=== PATIENT | female | born 1990 | race Caucasian/White ===

== ENCOUNTER → 2016-04-22 21:11 | Observation (INO) ==
[2016-04-22 19:20] LABS: Bilirubin,Urine Negative (Negative); Blood,Urine Negative (Negative); Clarity,Urine Cloudy (Clear); Color,Urine Yellow (Yellow); Glucose,Urine (UA) Normal (Normal); Ketones,Urine Negative (Negative); Leukocyte Esterase,Urine Large (Negative); Nitrite,Urine Negative (Negative); PH,Urine 6.5 pH Units (5.0-8.0); Protein,Urine Negative (Neg-Trace); Specific Gravity,Urine 1.015 (1.010-1.025); Urobilinogen,Urine Normal (Normal)
[2016-04-22 19:23] LABS: Bacteria,Urine Moderate per hpf (None-Few); Hyaline Casts,Urine None Seen per lpf (None-Few); RBC,Urine 0-3 per hpf (0-3); Squamous Epithelial Cell,Urine Many per lpf (None-Few); WBC,Urine 15-30 per hpf (0-3)
--- NOTE | 2016-04-22 21:05 | OB/GYN Progress Note ---
Date of Encounter: 04/22/16 Time of Encounter: 21:02 - Assessment and Plan (1) Abdominal pain affecting Current Visit: Yes Status: Acute Pt. reassured pain is from the baby, due to its position. Precautions given. To f/u as scheduled or prn. Subjective - Subjective Interval history: Pt. presents to L&D with c/o sharp pain in upper part of abdomen. Occured at work, worse with movement. Denies any urinary symptoms, vaginal bleeding, leaking of fluid. States pain located in a specific area about the size of a quarter. Objective - Vital Signs Vital Signs: Intake and Output 04/22/16 04/22/16 04/22/16 07:59 15:59 23:59 Other: Weight 66.905 kg Patient Weight 04/22/16 23:59 Weight 66.905 kg - Exam FHR: auscultation normal Comments: Location of pain noted in upper part of uterus. part palpated in the area. - Labs Labs: Abnormal lab results Urine Clarity Cloudy (Clear) A 04/22/16 19:10 Ur Leukocyte Esterase Large (Negative) H 04/22/16 19:10 Urine Microscopic WBC 15-30 per hpf (0-3) H 04/22/16 19:10 Ur Squamous Epith Cells Many per lpf (None-Few) H 04/22/16 19:10 Urine Bacteria Moderate per hpf (None-Few) H 04/22/16 19:10 Ur Culture Indicated? YES (NO) A 04/22/16 19:10
== END | disposition home or self-care (01) ==
LOC: 1NENULAB

== ENCOUNTER → 2016-05-15 14:00 | Observation (INO) ==
[2016-05-15 13:23] LABS: Bilirubin,Urine Negative (Negative); Blood,Urine Moderate (Negative); Clarity,Urine Cloudy (Clear); Color,Urine Yellow (Yellow); Glucose,Urine (UA) Normal (Normal); Ketones,Urine Negative (Negative); Leukocyte Esterase,Urine Moderate (Negative); Nitrite,Urine Negative (Negative); PH,Urine 7.5 pH Units (5.0-8.0); Protein,Urine Negative (Neg-Trace); Specific Gravity,Urine 1.009 (1.010-1.025); Urobilinogen,Urine Normal (Normal)
[2016-05-15 13:26] LABS: Bacteria,Urine Few per hpf (None-Few); Hyaline Casts,Urine None Seen per lpf (None-Few); Squamous Epithelial Cell,Urine Many per lpf (None-Few)
[2016-05-15 13:31] VITALS: BP 106/67
--- NOTE | 2016-05-15 13:44 | OB/GYN Progress Note ---
Date of Encounter: 05/15/16 Time of Encounter: 13:42 Subjective - Subjective Principal diagnosis: 32 weeks gestation with suprapelvic pain Interval history: Ms Gresham is a 25yo female, at 32 weeks Objective - Vital Signs Vital Signs: Vital Signs Temp Pulse Resp BP 05/15/16 13:23 98.2 F 90 14 106/67 Intake and Output 05/14/16 05/15/16 05/15/16 23:59 07:59 15:59 Other: Weight 68.9 kg Patient Weight 05/15/16 23:59 Weight 68.9 kg - Labs Labs: Abnormal lab results Urine Clarity Cloudy (Clear) A 05/15/16 13:13 Ur Specific [place] 1.009 (1.010-1.025) L 05/15/16 13:13 Urine Blood Moderate (Negative) H 05/15/16 13:13 Ur Leukocyte Esterase Moderate (Negative) H 05/15/16 13:13 Urine Microscopic RBC 5-15 per hpf (0-3) H 05/15/16 13:13 Urine Microscopic WBC 5-15 per hpf (0-3) H 05/15/16 13:13 Ur Squamous Epith Cells Many per lpf (None-Few) H 05/15/16 13:13 Ur Culture Indicated? YES (NO) A 05/15/16 13:13
--- NOTE | 2016-05-15 13:49 | Discharge Summary ---
Date of Encounter: 05/15/16 Time of Encounter: 13:49 - Discharge Diagnosis (1) 32 weeks gestation of Priority: Primary Status: Acute Comments: Ms Gresham is a at 32 weeks + 1 day who presents with suprapubic pain and clear, vaginal discharge. UA showed moderate blood, moderate leuk esterase , RBC and WBC and many squamous epithelial cells suggestive of a urinary tract infection. Patient will be discharged with 7 days of macrobid 100mg to follow up with her primary OB outpatient. (2) Suprapubic pain Priority: Secondary Status: Acute (3) Vaginal discharge Priority: Secondary Status: Acute - Discharge Medications Prescriptions: Nitrofurantoin Monohyd/M-Cryst [Macrobid 100 mg Capsule] 100 mg PO BID #14 capsule Home Medications: Nitrofurantoin Monohyd/M-Cryst [Macrobid 100 mg Capsule] 100 mg PO BID #14 capsule 05/15/16 [Rx] One Daily Tablet 1 / PO DAILY 05/15/16 [History] Allergies/Adverse Reactions: Allergies No Known Allergies Allergy (Verified 07/07/15 00:40) Data Procedures and tests throughout hospitalization: Laboratory Tests 05/15/16 13:13 Urine Color Yellow Urine Clarity Cloudy A Urine pH 7.5 Ur Specific [place] 1.009 L Urine Protein Negative Urine Glucose (UA) Normal Urine Ketones Negative Urine Blood Moderate H Urine Nitrite Negative Urine Bilirubin Negative Urine Urobilinogen Normal Ur Leukocyte Esterase Moderate H Urine Microscopic RBC 5-15 H Urine Microscopic WBC 5-15 H Ur Squamous Epith Cells Many H Urine Bacteria Few Hyaline Casts None Seen Ur Culture Indicated? YES A Labs on day of discharge: Labs from last 24 hours 05/15/16 13:13 Urine Color Yellow Urine Clarity Cloudy A Urine pH 7.5 Ur Specific [place] 1.009 L Urine Protein Negative Urine Glucose (UA) Normal Urine Ketones Negative Urine Blood Moderate H Urine Nitrite Negative Urine Bilirubin Negative Urine Urobilinogen Normal Ur Leukocyte Esterase Moderate H Urine Microscopic RBC 5-15 H Urine Microscopic WBC 5-15 H Ur Squamous Epith Cells Many H Urine Bacteria Few Hyaline Casts None Seen Ur Culture Indicated? YES A Date of admission: 05/15/16 12:45 Primary care physician: PCP NO Discharging clinician: Fermín Long Anticipated date of discharge: 05/15/16 - Patient Status Disposition: Home, Self-Care Condition: Good Functional capacity at discharge: independent ambulation Overall status at discharge: patient is back to baseline - Discharge Instructions Follow Up With: NO,PCP [Primary Care Provider] - - Diet and Activity Activity: increase activity as tolerated Diet: advance to your usual diet Hospital Course [facility] Hospital course: Ms Gresham is a 25yo female at 32 weeks + 1 day who presents with 4 days of suprapubic pain. Patient reports that pain is a 8/10, so bad that she is unable to walk because of the pain. She also reports significant vaginal discharge, clear with no foul smell. Patient reports good movement. She denies any fluid lose, BRYAN, vision changes, chest pain, SOB, pain with urination or inability to void, N/V, diarrhea or constipation. Patient reports no significant PMH or PSH. She is taking her vitamins and denies smoking , drinking or other drug use. Heart if RRR, lungs CTAB. Nitrozine test negative Time Attestation: Total time spent providing and/or coordinating discharge services: Exam - Constitutional Vitals: Temp Pulse Resp BP 98.2 F 90 14 106/67 05/15/16 13:23 05/15/16 13:23 05/15/16 13:23 05/15/16 13:23 General appearance IM: A&O X 3, no acute distress - Respiratory Respiratory exam: Present: CTAB - Cardiovascular Cardiovascular exam IM: Present: RRR - GI/Abdominal GI/Abdominal exam IM: normal bowel sounds, soft, tenderness - Extremities Exam Extremities exam IM: Present: full ROM. Absent: pedal edema - Neurological Exam Neurological exam: alert, CN II-XII intact, oriented X3 - VTE Reasons for not Prescribing Prophylaxis: Treatment not Indicated - Low risk for VTE
== END | disposition home or self-care (01) ==
LOC: 1NENULAB
PROVIDERS: ADMIT Student in an Organized Health Care Education/Training Program; ATTEND Student in an Organized Health Care Education/Training Program

== ENCOUNTER → 2016-06-09 18:05 | Observation (INO) ==
[2016-06-09 17:35] LABS: Bilirubin,Urine Negative (Negative); Blood,Urine Moderate (Negative); Clarity,Urine Cloudy (Clear); Color,Urine Yellow (Yellow); Glucose,Urine (UA) Normal (Normal); Ketones,Urine Negative (Negative); Leukocyte Esterase,Urine Large (Negative); Nitrite,Urine Negative (Negative); Protein,Urine Negative (Neg-Trace); Specific Gravity,Urine 1.016 (1.010-1.025); Urobilinogen,Urine Normal (Normal)
[2016-06-09 17:36] LABS: Bacteria,Urine Moderate per hpf (None-Few); Hyaline Casts,Urine None Seen per lpf (None-Few); RBC,Urine 0-3 per hpf (0-3); Squamous Epithelial Cell,Urine Many per lpf (None-Few)
--- NOTE | 2016-06-09 17:59 | OB/GYN Progress Note ---
Date of Encounter: 06/09/16 Time of Encounter: 17:55 - Assessment and Plan (1) First in adolescent 16 years of age or older in third trimester Current Visit: Yes Status: Acute (2) 35 weeks gestation of Current Visit: Yes Status: Acute (3) Vaginal bleeding Current Visit: Yes Status: Acute (4) Cervicitis Current Visit: Yes Status: Acute (5) Bacterial vaginosis Current Visit: Yes Status: Acute We will treat patient with Flagyl 500 mg twice a day for week with she will be taken off the rest of her shift tonight and will follow-up in the office next week Subjective - Subjective Interval history: Patient is a 25-year-old 1 para 0 at 35-5/7 weeks who presented to labor and delivery with complaint of vaginal spotting. 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 Patient was concerned and came to labor and delivery for an evaluation. Patient states it was just a one time thing has not noticed anything else. She has been complaining of quite a bit of vaginal discharge no odor no pruritus. Patient is scheduled to see her primary physician next week has not been examined yet.. Patient is noted to be having occasional contractions patient not feeling on those. Patient did have a speculum exam cervix is very friable started bleeding quite heavily just with touching it with a cotton swab. Wet mount obtained and the patient did reveal significant bacterial vaginosis. Antepartum ROS: vaginal bleeding Objective - Exam FHR: category 1 FHR comments: Preoperative 140s reactive occasional contractions noted Abdomen: Present: soft, gravid Uterus: Present: normal Cervical dilation: closed Cervix effacement: thick station: -3 Comments: Sterile speculum exam performed on the patient did reveal a yellowish discharge with a very friable cervix which bled very easily. Wet mount did reveal bacterial vaginosis with clue cells - Labs Labs: Abnormal lab results Urine Clarity Cloudy (Clear) A 06/09/16 17:10 Urine Blood Moderate (Negative) H 06/09/16 17:10 Ur Leukocyte Esterase Large (Negative) H 06/09/16 17:10 Urine Microscopic WBC 5-15 per hpf (0-3) H 06/09/16 17:10 Ur Squamous Epith Cells Many per lpf (None-Few) H 06/09/16 17:10 Urine Bacteria Moderate per hpf (None-Few) H 06/09/16 17:10 Ur Culture Indicated? YES (NO) A 06/09/16 17:10
== END | disposition home or self-care (01) ==
LOC: 1NENULAB
PROVIDERS: ADMIT Obstetrics & Gynecology; ATTEND Obstetrics & Gynecology

== ENCOUNTER → 2016-06-24 18:56 | Observation (INO) ==
--- NOTE | 2016-06-24 18:58 | OB/GYN Progress Note ---
Date of Encounter: 06/24/16 Time of Encounter: 18:55 - Assessment and Plan (1) 37 weeks gestation of Current Visit: Yes Status: Acute (2) Diarrhea Current Visit: Yes Status: Acute Will discharge patient home with a prescription for Lomotil she will follow up in the office Qualifiers: Diarrhea type: unspecified type Qualified Code(s): R19.7 - Diarrhea, unspecified (3) False labor after 37 completed weeks of gestation Current Visit: Yes Status: Acute (4) First in adolescent 16 years of age or older in third trimester Current Visit: No Status: Acute Subjective - Subjective Interval history: Patient is a 26-year-old 1 para 0 at 37-6/7 weeks who presented to labor and delivery with complaint of contractions and diarrhea. Patient states she started having diarrhea around midnight last night when she had local urgent care they really did not do anything for her gave her some type of prescription but she never got it filled. Patient states that she was not getting any better continued have diarrhea and was having cramping patient came to labor and delivery to be evaluated. Patient has had multiple visits to labor and delivery for different issues. Patient has not tried anything for the diarrhea is able to keep liquids down is having no nausea or vomiting. It has been a couple hours since she had her last loose stool. She denies any leaking of fluid no vaginal bleeding or discharge is having good movement. Antepartum ROS: contractions, other (Diarrhea) Objective - Vital Signs Vital Signs: Intake and Output 06/24/16 06/24/16 06/24/16 07:59 15:59 23:59 Other: Weight 71.2 kg Patient Weight 06/24/16 23:59 Weight 71.2 kg - Exam FHR: category 1 FHR comments: heart tones 140s and reactive irregular contractions noted Abdomen: Present: gravid Uterus: Present: firm Cervical dilation: fingertip Cervix effacement: 50 station: -3
== END | disposition home or self-care (01) ==
LOC: 1NENULAB
PROVIDERS: ADMIT Obstetrics & Gynecology; ATTEND Obstetrics & Gynecology

== ENCOUNTER 2016-07-07 07:46 | Inpatient (IN) ==
[~2016-07-07 07:46] MED LIST: Famotidine 20 MG/2 ML VIAL IVP PRN; Naloxone 0.4 MG/ML INJ IVP PRN; Ringers Solution, Lactated 1,000 ML IVC SCH
[2016-07-07 07:59] LABS: Basophils % 0.2 %; Eosinophils # 0.1 K/mcL (0.0-0.6); Eosinophils % 0.8 %; Hemoglobin 11.9 g/dL (11.5-15.4); Immature Granulocytes % 1.7 % (0-4); Lymphocytes # 1.8 K/mcL (0.6-4.6); Lymphocytes % 13.6 %; Mean Corpuscular HGB Conc 33.1 g/dL (31.6-35.5); Mean Corpuscular Hemoglobin 29.4 pg (28.0-33.3); Mean Corpuscular Volume 88.9 fL (83.0-100.0); Mean Platelet Volume 12.1 fL (9.4-12.4); Monocytes # 0.9 K/mcL (0.0-1.3); Monocytes % 6.4 %; Neutrophils # 10.2 K/mcL (1.6-8.9); Platelet Count 188 K/mcL (140-400); Red Blood Count 4.05 M/mcL (3.82-4.97); Segmented Neutrophils % 77.3 %
--- NOTE | 2016-07-07 08:31 | OB/GYN History & Physical ---
Date of Encounter: 07/07/16 Time of Encounter: 08:13 Assessment and Plan (1) 39 weeks gestation of Current visit: Yes Status: Acute hear monitoring and tocometer for contractions, IVF, pit drip (2) Spontaneous rupture of membranes Current visit: Yes Status: Acute hear monitoring and tocometer for contractions, IVF, pit drip (3) Elective induction of labor planned Current visit: Yes Status: Acute hear monitoring and tocometer for contractions, IVF, pit drip; possible epidural for pain control History of Present Illness Chief complaint: SROM 39 weeks HPI: Ms. Gresham is a 26 year old female G1, 39 5/7 weeks who experience SROM at 0100 and mild contractions described as bladder pain. Her OBGYN is Dr. Schroeder. SROM (+) G1 MELANIE: 08/09/16 Blood type: unsure no complications this ; frequent UTIs Male: Abel Bottle feed circumcision: yes [facility] 1cm dilatation Past Med Surg Social Fam HX - Past Medical History Medical history: no medical history Psychiatric history: no psych history - Past Surgical History Surgical History: no surgical history - Social History Smoking Status: Never smoker Smokeless Tobacco Status: No Alcohol use: none Drug use: none - Family History Mother Adopted: No Family Member Ethnicity: Non- Living Status: Still Living Hx Family Cardiac Disorders: No Hx Family Respiratory Disorders: No Hx Family Cancer: No Hx Family GI Disorders: No Hx Family Endocrine Disorder: No Hx Family Neuromuscular Disorders: No Hx Family Neurologic Disorders: No Hx Family HEENT Disorders: No Hx Family Autoimmune Disorders: No Hx Family Medical Disorders: Yes (veritgo; cholestitis) Obstetrical History - Pregnancies : 1 Medications and Allergies One Daily Tablet 1 / PO DAILY 05/15/16 [History] Diphenoxylate/Atropine [Lomotil 2.5 mg/0.025 mg] 2 each PO NOW #5 tablet [Rx] Allergies No Known Allergies Allergy (Verified 07/07/15 00:40) Review of System OB All systems PM: reviewed and no additional remarkable complaints except as stated - Genitourinary Genitourinary: other (bladder pain) Exam - Constitutional Constitutional: well developed, well nourished, no acute distress, average body habitus - HEENT HEENT: Normocephaly, Mucus Membranes Moist - Neck Neck exam: full ROM - Lungs Respiratory exam: CTAB - Cardiovascular Cardiovascular exam: RRR - Breasts Breast: bilateral: normal - Abdomen Abdomen: Present: bowel sounds normal, gravid, non tender - Vagina Vagina: Present: normal moisture - Cervix Dilation: 1 (per RN) Effacement: 80 (per RN) - Uterus Uterus exam: Present: normal size, normal contour - Anus/Rectum Anus/Rectum: Present: normal perianal skin Results Result Diagrams: 07/07/16 07:44 Abnormal lab results WBC 13.2 K/mcL (4.3-11.1) H 07/07/16 07:44 Neutrophils # 10.2 K/mcL (1.6-8.9) H 07/07/16 07:44 All other labs normal. - VTE Reasons for not Prescribing Prophylaxis: Treatment not Indicated - Low risk for VTE
[2016-07-07] MEDS ORDERED: Oxytocin 20 units/ LR 1000 mL 20 UNIT/1,000 ML BAG IVC SCH (08:45)
--- NOTE | 2016-07-07 10:12 | Anesthesia Evaluation PreOp ---
Date of Encounter: 07/07/16 Time of Encounter: 10:05 - Past History Planned Operation: vaginal del, , G1 ROM on PIT Cardiac History: Denies any Significant Hx Pulmonary History: Denies Any Significant HX ROLLER VARNISHER History: Denies Any Significant HX Other Medical History: Denies Any Significant HX Anesthesia History: No Prior Anesthetic Complications (no family HX.) : Yes (term) Alcohol Use: none Drug use: none Medications and Allergies One Daily Tablet 1 / PO DAILY 05/15/16 [History] Diphenoxylate/Atropine [Lomotil 2.5 mg/0.025 mg] 2 each PO NOW #5 tablet [Rx] Allergies No Known Allergies Allergy (Verified 07/07/15 00:40) Anesthesia Results - Labs 07/07/16 07:44 Anesthesia Exam - HEENT Pupil (Motor): Pupils equal Mallampati: III Teeth: Normal Oral Opening: Greater than 3 - ROLLER VARNISHER LOC: Oriented ROLLER VARNISHER Motor: Normal RUE, Normal LUE, Normal RLE, Normal LLE, Normal Face ROLLER VARNISHER Sensory: Normal: RUE, LUE, RLE, LLE, Face - Cardiac Rhythm: Regular Murmur: None - Pulmonary Breath Sounds: bilateral Clear Respiratory Effort: Symmetrical Anesthesia Assess/Plan ASA Score: 2 Modified Yris Scale for Level of Consciousness: Cooperative, oriented, and tranquil Anesthetic Plan: General, Regional Monitoring Plan: Standard Monitors
[2016-07-07] MEDS ORDERED: Epidural Premix (fent/bupiv) 110 ML EP ONE ×2 (10:24→20:44)
[2016-07-07] MEDS ORDERED: *HR* Nalbuphine 20 MG/ML AMPUL IVP PRN (11:42)
[2016-07-07] MEDS ORDERED: *HR* Nalbuphine 20 MG/ML AMPUL ONE (11:49)
--- NOTE | 2016-07-07 13:41 | Anesthesia Procedures ---
Date of Encounter: 07/07/16 Time of Encounter: 13:24 Procedures: Anesthesia - Epidural/Spinal Patient ID/Chart reviewed: Yes Patient examined: Yes OB Eval: Gestational age: term OB Eval: : 1 OB Eval: Dilated at (cm): 4 OB Eval: Contractions: Non-stressed pattern Consent Obtained: Yes Supplemental Oxygen: None/Room Air Site Prep: Aseptic Technique, Sterile prep and drape, 0.5% Chlorhexidine/Alcohol Patient position: upright Local Anesthetic: Lidocaine 1% Amount of Local Anesthetic used: 2 Touhy Needle Gauge: 18 Touhy Needle Depth (cm): 6 Catheter Depth at Skin (cm): 10 Test Dose (1.5% Lido + Epi): Volume given (mls): 3 Test Dose Result: Negative Loading Dose: Other: 12ml from solution Loading Dose Administered: Thru Catheter Infusion Med: 0.125% Bupivacaine w/ 2 mcg/ml Fentanyl Infusion Rate (mls/hr): [address]: Tegaderm, Tape Interspace Used: L3-L4 Loss of Resistance (RAJIV): Yes (saline) Blood: No CSF: No Paresthesia: No Vitals + FHT's: vss though out, FHR stable though out per rn's
[2016-07-07] MEDS ORDERED: ROPIVACAINE HCL/PF 0.5% 30 ML VIAL ONE (19:35)
[2016-07-07] MEDS ORDERED: Acetaminophen 325 MG TABLET PO ONE (22:38)
[2016-07-08] MEDS ORDERED: Ampicillin 2 GM in 0.9 % Sodium Chloride Mini Bag 100 ML IVPB ONE (01:24)
--- NOTE | 2016-07-08 02:19 | OB/GYN Procedure Note ---
Delivery - Delivery Date: 07/08/16 Provider: Eleazar Lopez Intrapartum events: febrile- temp >100.3 Delivery augmentation: pitocin Delivery monitor: external FHT, internal uterine Anesthesia: local, epidural Estimated Blood Loss: 250 - (s) A Delivery Date: 07/08/16 Delivery Time: 01:53 Presentation: vertex Position: LIBRA Route of delivery: Gender: Male Viability: Viable Pounds: 7 Ounces: 7 at 1 minute: 8 at 5 mins: 9 Shoulder Dystocia: not encountered Specimens collected: cord blood Placenta: spontaneous Cord: 3 umbilical vessels - Repair Episiotomy: none Laceration Description: Perineal - 2nd Degree - Complications Delivery complications: none - Disposition Mom disposition: stable in LDR disposition: stable in LDR - Comments Comments: Pt is s/p of liveborn male infant. Spont delivery of normal placenta with 3vc. Repair of 2nd degree laceration without difficulty with 3-0 vicryl under local and epidural anesthesia.
[2016-07-08] MEDS ORDERED: Measles/Mumps/Rubella Vacc 0.5 ML VIAL SQ PRN (03:10)
[2016-07-08] MEDS ORDERED: Oxytocin 20 units/ LR 1000 mL 20 UNIT/1,000 ML BAG IVC SCH (03:10)
[2016-07-08] MEDS ORDERED: Rho Immune Globulin 1,500 UNIT SYRINGE IM PRN (03:10)
[2016-07-08] MEDS: Ibuprofen 600 MG TABLET PO PRN ×2 (03:34→15:05)
[2016-07-08] MEDS: Acetaminophen 325 MG TABLET PO PRN (05:09)
[2016-07-08 06:18] LABS: Platelet Count 147 K/mcL (140-400)
[2016-07-08 06:19] LABS: Hemoglobin 10.1 g/dL (11.5-15.4); Mean Corpuscular HGB Conc 33.7 g/dL (31.6-35.5); Mean Corpuscular Hemoglobin 29.4 pg (28.0-33.3); Mean Corpuscular Volume 87.5 fL (83.0-100.0); Mean Platelet Volume 12.5 fL (9.4-12.4); Red Blood Count 3.43 M/mcL (3.82-4.97); Red Cell Distribution Width 13.2 % (11.5-14.5)
[2016-07-08 07:14] LABS: Lymphocytes # 2.6 K/mcL (0.6-4.6); Monocytes # 1.3 K/mcL (0.0-1.3); Neutrophils # 28.6 K/mcL (1.6-8.9); Platelet Estimate Normal (Normal)
[2016-07-08] MEDS: Ampicillin 1,000 MG in 0.9 % Sodium Chloride Mini Bag 100 ML IVPB SCH ×5 (07:58→23:54)
[2016-07-08] MEDS ORDERED: Gentamicin 0 MG in 0.9 % Sodium Chloride 100 ML IVPB SCH (08:00)
[2016-07-08] MEDS ORDERED: Gentamicin 280 MG in 0.9 % Sodium Chloride 100 ML IVPB SCH (08:30)
[2016-07-08] MEDS: Clindamycin 600 MG/50 ML 600 MG/50 ML IV.SOLN IVPB SCH ×2 (08:57→16:54)
[2016-07-08] MEDS ORDERED: Gentamicin 100 MG in 0.9 % Sodium Chloride 100 ML IVPB ONE (09:00)
[2016-07-08] MEDS: Prenatal Vit/FA 1 EACH TABLET PO SCH (09:14)
[2016-07-09] MEDS: Clindamycin 600 MG/50 ML 600 MG/50 ML IV.SOLN IVPB SCH (00:30)
[2016-07-09] MEDS: Ampicillin 1,000 MG in 0.9 % Sodium Chloride Mini Bag 100 ML IVPB SCH ×2 (03:40→08:16)
[2016-07-09] MEDS: Acetaminophen 325 MG TABLET PO PRN (03:54)
[2016-07-09 03:59] LABS: Basophils % 0.2 %; Hemoglobin 9.7 g/dL (11.5-15.4)
[2016-07-09 04:00] LABS: Basophils # 0.1 K/mcL (0.0-0.2); Eosinophils # 0.1 K/mcL (0.0-0.6); Eosinophils % 0.2 %; Hematocrit 29.4 % (35.3-44.9); Immature Granulocytes % 1.3 % (0-4); Lymphocytes # 2.1 K/mcL (0.6-4.6); Lymphocytes % 7.9 %; Mean Corpuscular Hemoglobin 29.5 pg (28.0-33.3); Mean Corpuscular Volume 89.4 fL (83.0-100.0); Mean Platelet Volume 12.1 fL (9.4-12.4); Monocytes # 1.3 K/mcL (0.0-1.3); Monocytes % 4.7 %; Neutrophils # 22.8 K/mcL (1.6-8.9); Platelet Count 179 K/mcL (140-400); Red Blood Count 3.29 M/mcL (3.82-4.97); Red Cell Distribution Width 13.3 % (11.5-14.5); Segmented Neutrophils % 85.7 %
[2016-07-09 04:09] LABS: eGFR For African Americans > 60 (> 60); eGFR For Non-African Americans > 60 (> 60)
[2016-07-09 04:29] LABS: Platelet Estimate Normal (Normal)
[2016-07-09 08:18] VITALS: BP 122/86
--- NOTE | 2016-07-09 08:51 | Discharge Summary ---
Date of Encounter: 07/09/16 Time of Encounter: 08:46 - Discharge Diagnosis (1) Vaginal delivery Priority: Primary Status: Resolved Comments: arrived 07/07 for planned induction at 39wks. PROM on Ampcillin, Gentamycin, Clindamycin. Augmented with pitocin. of viable male . 2nd degree laceration repaired. Patient is doing well today; she is requesting to go home. She is doing well with her diet, voiding, passing flatus and BM, and ambulating. She reports mild perianal pain 2/2 sutures; improved with motrin and ice packs. We discussed freezing witch trevor infused pad for continued at home therapy. Neither she nor her have any questions at this time. Baby is doing well; bottle feeding. (2) 39 weeks gestation of Priority: Secondary Status: Resolved Comments: as above (3) Spontaneous rupture of membranes Priority: Secondary Status: Resolved Comments: as above (4) Elective induction of labor planned Priority: Secondary Status: Resolved Comments: as above - Discharge Medications Prescriptions: Ibuprofen [Motrin] 600 mg PO Q6HR PRN #40 tablet PRN Reason: Cramping Docusate [Colace] 100 mg PO BID PRN #40 capsule PRN Reason: Constipation Ferrous Sulfate 325 mg PO BID #60 tablet Vit/FA 1 each PO DAILY #40 tablet Home Medications: One Daily Tablet 1 / PO DAILY 05/15/16 [History] Diphenoxylate/Atropine [Lomotil 2.5 mg/0.025 mg] 2 each PO NOW #5 tablet [Rx] Acetaminophen [Tylenol] 650 mg PO Q6HR PRN #0 tablet 07/09/16 [Rx] Ampicillin Trihydrate 500 mg PO BID #7 capsule 07/09/16 [Rx] Clindamycin [Cleocin] 300 mg PO BID #7 capsule 07/09/16 [Rx] Docusate [Colace] 100 mg PO BID PRN #40 capsule 07/09/16 [Rx] Ferrous Sulfate 325 mg PO BID #60 tablet 07/09/16 [Rx] Ibuprofen [Motrin] 600 mg PO Q6HR PRN #40 tablet 07/09/16 [Rx] Vit/FA 1 each PO DAILY #40 tablet 07/09/16 [Rx] Allergies/Adverse Reactions: Allergies No Known Allergies Allergy (Verified 07/07/15 00:40) Data Procedures and tests throughout hospitalization: Laboratory Tests 07/07/16 07/08/16 07/08/16 07:44 05:55 21:23 WBC 13.2 H 32.5 H* D RBC 4.05 3.43 L Hgb 11.9 10.1 L D Hct 36.0 30.0 L MCV 88.9 87.5 MCH 29.4 29.4 MCHC 33.1 33.7 RDW 13.0 13.2 Plt Count 188 147 MPV 12.1 12.5 H Immature Gran % 1.7 Seg Neutrophils % 77.3 86.0 Band Neutrophils % 2.0 Lymphocytes % 13.6 8.0 Monocytes % 6.4 4.0 Eosinophils % 0.8 Basophils % 0.2 Neutrophils # 10.2 H 28.6 H Lymphocytes # 1.8 2.6 Monocytes # 0.9 1.3 Eosinophils # 0.1 Basophils # 0.0 Platelet Estimate Normal Creatinine Est GFR ( Amer) Est GFR (Non-Af Amer) Random Gentamicin 1.0 07/09/16 07/09/16 03:42 03:42 WBC 26.6 H RBC 3.29 L Hgb 9.7 L Hct 29.4 L MCV 89.4 MCH 29.5 MCHC 33.0 RDW 13.3 Plt Count 179 MPV 12.1 Immature Gran % 1.3 Seg Neutrophils % 85.7 Band Neutrophils % Lymphocytes % 7.9 Monocytes % 4.7 Eosinophils % 0.2 Basophils % 0.2 Neutrophils # 22.8 H Lymphocytes # 2.1 Monocytes # 1.3 Eosinophils # 0.1 Basophils # 0.1 Platelet Estimate Normal Creatinine 0.74 Est GFR ( Amer) > 60 Est GFR (Non-Af Amer) > 60 Random Gentamicin Labs on day of discharge: Labs from last 24 hours 07/09/16 07/09/16 07/08/16 03:42 03:42 21:23 WBC 26.6 H RBC 3.29 L Hgb 9.7 L Hct 29.4 L MCV 89.4 MCH 29.5 MCHC 33.0 RDW 13.3 Plt Count 179 MPV 12.1 Immature Gran % 1.3 Seg Neutrophils % 85.7 Lymphocytes % 7.9 Monocytes % 4.7 Eosinophils % 0.2 Basophils % 0.2 Neutrophils # 22.8 H Lymphocytes # 2.1 Monocytes # 1.3 Eosinophils # 0.1 Basophils # 0.1 Platelet Estimate Normal Creatinine 0.74 Est GFR ( Amer) > 60 Est GFR (Non-Af Amer) > 60 Random Gentamicin 1.0 Date of admission: 07/07/16 07:46 Primary care physician: PCP NO Consults: 07/08/16 03:10 Consult to [employer] [CONS] Routine Comment: Vaginal delivery, consult needed Discharging clinician: Dominick Turcios Anticipated date of discharge: 07/09/16 - Patient Status Disposition: Home, Self-Care Condition: Good Functional capacity at discharge: independent ambulation Overall status at discharge: patient is progressing back to baseline - Discharge Instructions Instructions: Vaginal Delivery (DC), Bleeding (DC) Follow Up With: NO,PCP [Primary Care Provider] - Lashon Schroeder, [Partnered Physician] - - Diet and Activity Activity: increase activity as tolerated, resume usual activities as tolerated Diet: advance to your usual diet Hospital Course Reason for admission: induction of labor Delivery: Episiotomy: none Laceration: 2nd degree Other procedures: none complications: none Discharge diagnosis: IUP at term delivered [place] baby: male Hospital course: Mrs. Hensley arrived 07/07 for planned induction at 39wks. PROM on Ampcillin, Gentamycin, Clindamycin. Augmented with pitocin. of viable male infant. 2nd degree laceration repaired. Placenta spontaneously delivered , normal, 3vc. Patient is doing well today; she is requesting to go home. She is doing well with her diet, voiding, passing flatus and BM, and ambulating. She reports mild perianal pain 2/2 sutures; improved with motrin and ice packs. We discussed freezing witch trevor infused pad for continued at home therapy. Neither she nor her have any questions at this time. Baby is doing well ; bottle feeding. Time Attestation: Total time spent providing and/or coordinating discharge services: Time Spent: Less than 30 minutes Specific discharge activities: Follow-up with your OB, Dr. Schroeder, in 4 weeks. Exam - Constitutional Vitals: Temp Pulse Resp BP Pulse Ox 97.9 F 80 16 122/86 98 07/09/16 08:17 07/09/16 08:17 07/09/16 08:17 07/09/16 08:17 07/08/16 19:55 General appearance IM: A&O X 3, no acute distress, answers questions appropriately - Respiratory Respiratory exam: Present: CTAB - Cardiovascular Cardiovascular exam IM: Present: RRR, +S1, +S2 - GI/Abdominal GI/Abdominal exam IM: normal bowel sounds, soft, no peritoneal signs - Uterine Tone: Firm Uterus Position: 3 Fingers Below Umbilicus - Extremities Exam Extremities exam IM: Present: normal inspection, warm. Absent: pedal edema - Neurological Exam Neurological exam: oriented X3
[2016-07-09] MEDS: Prenatal Vit/FA 1 EACH TABLET PO SCH (09:53)
[2016-07-09] MEDS ORDERED: Aminoglycoside Consult 1 EACH MC ONE (12:01)
== END 2016-07-09 12:02 | disposition home or self-care (01) | DRG 775 ==
LOC: 1NENULAB → 1NENUOBS 07-08 04:21
PROVIDERS: ADMIT Obstetrics & Gynecology; ATTEND Obstetrics & Gynecology

== ENCOUNTER 2020-01-05 08:00 | Inpatient (IN) ==
[2020-01-05] MEDS ORDERED: Ondansetron 4 MG/2 ML VIAL IVP PRN (08:12)
[2020-01-05] MEDS ORDERED: Metoclopramide 10 MG/2 ML VIAL IVP PRN (08:12)
[2020-01-05] MEDS ORDERED: *HR* FentaNYL (PF) 100 MCG/2 ML VIAL IVP PRN (08:12)
[2020-01-05] MEDS ORDERED: Naloxone 0.4 MG/ML INJ IVP PRN (08:12)
[2020-01-05] MEDS ORDERED: Lidocaine 1% 20 ML MDV ID PRN (08:12)
[2020-01-05] MEDS ORDERED: Azithromycin 500 MG in 0.9 % Sodium Chloride 250 ML IVPB ONE (08:12)
[2020-01-05] MEDS ORDERED: Famotidine 20 MG/2 ML VIAL IVP PRN (08:12)
[2020-01-05] MEDS ORDERED: Ringers Solution, Lactated 1,000 ML IVC SCH (08:15)
[2020-01-05] MEDS ORDERED: FLU Vac QV 20-21 (6Month+)/PF 0.5 ML SYRINGE IM ONE (08:35)
[2020-01-05] MEDS ORDERED: miSOPROStoL 25 MCG TABLET VG PRN (08:45)
[2020-01-05 09:42] LABS: Basophils % 0.2 %; Eosinophils % 0.3 %; Hematocrit 40.1 % (35.3-44.9); Hemoglobin 12.9 g/dL (11.5-15.4); Lymphocytes # 1.7 K/mcL (0.6-4.6); Lymphocytes % 13.5 %; Mean Corpuscular HGB Conc 32.2 g/dL (31.6-35.5); Mean Corpuscular Hemoglobin 29.4 pg (28.0-33.3); Mean Corpuscular Volume 91.3 fL (83.0-100.0); Mean Platelet Volume 12.4 fL (9.4-12.4); Monocytes # 0.9 K/mcL (0.0-1.3); Monocytes % 7.5 %; Neutrophils # 9.5 K/mcL (1.6-8.9); Platelet Count 214 K/mcL (140-400); Red Blood Count 4.39 M/mcL (3.82-4.97); Red Cell Distribution Width 14.1 % (11.5-14.5); Segmented Neutrophils % 77.5 %; White Blood Count 12.2 K/mcL (4.3-11.1)
[2020-01-05 09:58] LABS: Amphetamine Screen,Urine Negative ng/mL (Cutoff=1000); Barbiturate Screen,Urine Negative ng/mL (Cutoff=200); Benzodiazepines Screen,Urine Negative ng/mL (Cutoff=200); Cannabinoid Screen,Urine Negative ng/mL (Cutoff = 50); Cocaine Screen,Urine Negative ng/mL (Cutoff= 300); Opiate Screen,Urine Negative ng/mL (Cutoff=300); Phencyclidine Screen,Urine Negative ng/mL (Cutoff=25)
[2020-01-05] MEDS ORDERED: *HR* FentaNYL (PF) 100 MCG/2 ML VIAL EP ONE ×2 (12:53→12:56)
[2020-01-05] MEDS ORDERED: EPHEDrine 50 MG/ML VIAL IVP PRN ×2 (12:53→12:56)
[2020-01-05] MEDS ORDERED: Ropivacaine/PF 0.2% 20 ML VIAL EP ONE ×2 (12:53→12:56)
[2020-01-05] MEDS ORDERED: Epidural Premix (fent/bupiv) 110 ML EP SCH ×2 (13:00)
[2020-01-05] MEDS ORDERED: Epidural Premix (fent/bupiv) 110 ML EP ONE (13:01)
[2020-01-05] MEDS ORDERED: Ropivacaine/PF 0.2% 20 ML VIAL ONE (13:02)
[2020-01-05] MEDS ORDERED: *HR* FentaNYL (PF) 100 MCG/2 ML VIAL ONE (13:02)
[2020-01-05] MEDS ORDERED: Oxytocin 20 units/ LR 1000 mL 20 UNIT/1,000 ML BAG IVC ONE (16:05)
[2020-01-05] MEDS ORDERED: Ibuprofen 600 MG TABLET PO PRN (19:45)
[2020-01-05] MEDS ORDERED: Benzocaine/Menthol 56 GM AEROSOL SPRAY TP PRN (19:45)
[2020-01-05] MEDS ORDERED: Lanolin 7 G OINT...G. TP PRN (19:45)
[2020-01-05] MEDS ORDERED: Acetaminophen 325 MG TABLET PO PRN (19:45)
[2020-01-05] MEDS ORDERED: Oxytocin 20 units/ LR 1000 mL 20 UNIT/1,000 ML BAG IVC SCH (19:45)
[2020-01-05] MEDS ORDERED: cefTRIAXone 1,000 MG in 0.9 % Sodium Chloride Mini Bag 100 ML IVPB ONE (20:51)
[2020-01-06 04:51] LABS: Basophils % 0.1 %; Eosinophils % 0.1 %; Hematocrit 37.3 % (35.3-44.9); Hemoglobin 12.4 g/dL (11.5-15.4); Immature Granulocytes % 0.7 % (0-4); Lymphocytes # 1.8 K/mcL (0.6-4.6); Lymphocytes % 7.8 %; Mean Corpuscular HGB Conc 33.2 g/dL (31.6-35.5); Mean Corpuscular Hemoglobin 29.5 pg (28.0-33.3); Mean Corpuscular Volume 88.8 fL (83.0-100.0); Monocytes # 1.2 K/mcL (0.0-1.3); Monocytes % 5.1 %; Neutrophils # 19.7 K/mcL (1.6-8.9); Platelet Count 174 K/mcL (140-400); Red Cell Distribution Width 14.3 % (11.5-14.5); Segmented Neutrophils % 86.2 %; White Blood Count 22.8 K/mcL (4.3-11.1)
[2020-01-06] MEDS ORDERED: Prenatal Vit/FA 1 EACH TABLET PO SCH (09:00)
[2020-01-06] MEDS ORDERED: FLU Vac QV 20-21 (6Month+)/PF 0.5 ML SYRINGE IM ONE (14:03)
[2020-01-07 08:42] VITALS: BP 133/86
== END 2020-01-06 16:30 | disposition home or self-care (01) | DRG 560 ==
LOC: 1NENULAB 08:02 → 1NENUOBS 20:06
PROVIDERS: ADMIT Obstetrics & Gynecology; ATTEND Obstetrics & Gynecology